=== PATIENT | female | born 1995 | race Caucasian/White ===

== ENCOUNTER 2018-11-24 18:25 | Emergency (ER) | payer BC ==
[2018-11-24] MEDS ORDERED: HYDROcodone/Acetaminophen 10/325 mg Tablet ONE (19:26)
[2018-11-24] MEDS ORDERED: Ibuprofen 800 MG TAB ONE (19:26)
--- NOTE | 2018-11-24 20:45 | CT ---
CT OF THE BRAIN WITHOUT CONTRAST: 11/24/18 The ventricles are normal in size with no shift. No intracranial bleeding or extra-axial hematoma was seen. The skull appears intact. The sphenoid sinus and mastoid air cells are clear. IMPRESSION: No acute intracranial finding. POS: HOME
--- NOTE | 2018-11-24 20:46 | CT ---
CT OF THE CERVICAL SPINE: 11/24/[address] of the cervical spine was done following trauma. Axial slices were acquired followed by cor onal and sagittal reconstructions. There is reversal of the normal cervical lordosis. No fracture, dislocation, or acute bony change was seen. The disc spaces are normal in height and the C1 to dens distance is normal. The soft tissues a re normal in thickness. IMPRESSION: Straightening of the cervical spine. No acute findings otherwise. POS: HOME
--- NOTE | 2018-11-24 20:47 | RAD ---
RIGHT HIP TWO VIEWS: 11/24/18 No fracture, dislocation, or acute bony change was seen. The joint space is normal in width. IMPRESSION: No acute finding. POS: HOME
--- NOTE | 2018-11-24 20:48 | RAD ---
RIGHT KNEE FOUR VIEWS: 11/24/18 No fracture or joint effusion was seen. The joint space appears normal. IMPRESSION: No acute finding. POS: HOME
== END 2018-11-24 19:35 | disposition home or self-care (01) ==
LOC: BURERS 18:25
DX: S16.1XXA Strain of muscle, fascia and tendon at neck level, initial encounter (principal); S70.01XA Contusion of right hip, initial encounter; S00.03XA Contusion of scalp, initial encounter; E03.9 Hypothyroidism, unspecified; F31.9 Bipolar disorder, unspecified; F17.210 Nicotine dependence, cigarettes, uncomplicated; Z79.899 Other long term (current) drug therapy; V80.010A Animal-rider injured by fall from or being thrown from horse in noncollision accident, initial encounter
CPT/HCPCS: 70450; 72125